=== PATIENT | female | born 1975 | race Caucasian/White ===

== ENCOUNTER 2018-12-10 17:05 | Emergency (ER) | payer SELFPAY ==
[~2018-12-10] VITALS: Ht 152.4 cm; Wt 72.7 kg
[~2018-12-10 17:05] MED LIST: NO MEDS
[2018-12-10 18:47] LABS: APPEARANCE,URINE CLEAR (CLEAR); BILIRUBIN,URINE NEGATIVE (NEGATIVE); GLUCOSE, URINE (UA) NEGATIVE (NEGATIVE); KETONES,URINE NEGATIVE (NEGATIVE); LEUKOCYTE ESTERASE ,URINE NEGATIVE (NEGATIVE); NITRATE,URINE NEGATIVE (NEGATIVE); OCCULT BLOOD,URINE NEGATIVE (NEGATIVE); PH,URINE 6.5 (5.0-8.0); PROTEIN,URINE NEGATIVE (NEGATIVE); UROBILINOGEN,URINE 0.2 mg/dL (<=1.0)
[2018-12-10 18:56] LABS: BACTERIA,URINE None Seen /HPF (None Seen); RBC,URINE None Seen /HPF (0-2); SQUAMOUS EPITHELIAL CELL,UR Few /LPF (None Seen); WBC,URINE None Seen /HPF (0-5)
[2018-12-10 19:28] VITALS: BP 118/67
== END 2018-12-10 19:34 | disposition home or self-care (01) ==
LOC: EMS 17:06
DX: N75.0 Cyst of Bartholin's gland (principal); N90.89 Other specified noninflammatory disorders of vulva and perineum